=== PATIENT | female | born 2000 | race Hispanic/Latino ===

== ENCOUNTER 2022-03-07 18:00 | Inpatient (IN) | payer OTHER ==
[~2022-03-07 18:00] MED LIST: Acetaminophen 500 MG TAB PO PRN; Butorphanol Tartrate 1 MG/ML VIAL SLOW IVP PRN; Carboprost 250 MCG/ML AMP IM PRN; Diphenoxylate HCl/Atropine Tablet PO PRN; HYDROcodone/Acetaminophen 5/325 mg Tablet PO PRN; Ibuprofen 800 MG TAB PO PRN; Lactated Ringer's 1,000 ML IV SCH; Lidocaine 1% (PF) 30 ML VIAL SC PRN; Methylergonovine 0.2 MG/ML VIAL IM PRN; Misoprostol 100 MCG TAB PO SCH; Misoprostol 200 MCG TAB PR PRN; NS w/ Oxytocin 30 units 500 ML IV SCH; Ondansetron PF 4 MG/2 ML Vial IVP PRN; Penicillin G 2.5 MILL.units 2.5 MILL.UNITS in Premix Bag 1 BAG IVPB SCH; Penicillin G Potassium 5 MILL.UNITS in Sodium Chloride 0.9% 100 ML IVPB SCH; Promethazine HCl 25 MG/ML VIAL IM PRN; hydrALAZINE 20 MG/ML VIAL SLOW IVP PRN
[2022-03-07 19:45] VITALS: BMI 20.7
[2022-03-07] MEDS ORDERED: Penicillin G Potassium 5 MILL.UNITS VIAL ONE (20:34)
[2022-03-07 20:43] LABS: Hemoglobin 12.9 g/dL (12.0-15.5); Mean Corpuscular HGB CONC 34.4 g/dL (32.0-36.0); Mean Corpuscular Hemoglobin 30.8 pg (27.0-33.0); Mean Corpuscular Volume 89.5 fl (81.6-98.3); Mean Platelet Volume 11.2 fl (7.4-10.4); Platelet Count 176 10x3/uL (150-450); RBC Distribution Width 13.2 % (11.5-14.5); Red Blood Cell (RBC) Count 4.19 10x6/uL (3.90-5.03); White Blood Cell (WBC) Count 9.1 10x3/uL (3.5-10.5)
[2022-03-07 21:17] LABS: Syphilis Antibody Nonreactive (Nonreactive); Syphilis Antibody Index 0.03 S/CO (<1.00 Non-Reactive)
[2022-03-07 21:18] LABS: Hep B Surf Ag Non-Reactive S/CO (NonReactive)
[2022-03-07 21:22] LABS: HBSAg Index 0.23 S/CO (0-0.99)
[2022-03-08] MEDS ORDERED: Fentanyl 2 mcg/Bup 0.1% Cadd 100 ML ONE (02:43)
[2022-03-08] MEDS ORDERED: HYDROcodone/Acetaminophen 5/325 mg Tablet PO PRN ×2 (05:54)
[2022-03-08] MEDS ORDERED: Lanolin Ointment 7 GM TUBE TOP PRN (05:54)
[2022-03-08] MEDS ORDERED: Preparation H Ointment 28 GM TUBE PR PRN (05:54)
[2022-03-08] MEDS ORDERED: Misoprostol 200 MCG TAB VAG PRN (05:54)
[2022-03-08] MEDS ORDERED: hydrALAZINE 20 MG/ML VIAL SLOW IVP PRN (05:54)
[2022-03-08] MEDS ORDERED: Bisacodyl 10 MG SUPP PR PRN (05:54)
[2022-03-08] MEDS ORDERED: Ondansetron PF 4 MG/2 ML Vial IVP PRN (05:54)
[2022-03-08] MEDS ORDERED: NS w/ Oxytocin 30 units 500 ML IV SCH (05:54)
[2022-03-08] MEDS ORDERED: Promethazine HCl 25 MG/ML VIAL IM PRN (05:54)
[2022-03-08] MEDS ORDERED: Methylergonovine 0.2 MG/ML VIAL IM PRN (05:54)
[2022-03-08] MEDS ORDERED: Ketorolac Tromethamine 30 MG/ML VIAL IVP SCH (05:54)
[2022-03-08] MEDS ORDERED: Milk Of Magnesia 30 ML UDCUP PO PRN (05:54)
[2022-03-08] MEDS: Ibuprofen 800 MG TAB PO SCH ×3 (06:50→21:34)
[2022-03-08 07:19] LABS: SARS-CoV-2 NAA Rapid Test Not Detected (NotDetected)
[2022-03-08] MEDS: Prenatal Vitamin 1 TAB PO SCH (08:31)
[2022-03-08] MEDS: Ferrous Sulfate 325 MG TAB PO SCH ×2 (08:31→16:35)
[2022-03-08] MEDS: Docusate 100 MG CAP PO SCH ×2 (08:31→21:34)
[2022-03-09] MEDS: Ibuprofen 800 MG TAB PO SCH ×3 (05:24→21:12)
[2022-03-09] MEDS: Docusate 100 MG CAP PO SCH ×2 (08:21→21:12)
[2022-03-09] MEDS: Prenatal Vitamin 1 TAB PO SCH ×2 (08:21→08:23)
[2022-03-09] MEDS: Ferrous Sulfate 325 MG TAB PO SCH ×2 (08:22→15:56)
[2022-03-10 07:54] VITALS: BP 103/64; TEMP 97.5
[2022-03-10] MEDS: Docusate 100 MG CAP PO SCH (08:21)
[2022-03-10] MEDS: Ferrous Sulfate 325 MG TAB PO SCH ×2 (08:29→15:38)
[2022-03-10] MEDS: Prenatal Vitamin 1 TAB PO SCH (08:29)
[2022-03-10] MEDS: Ibuprofen 800 MG TAB PO SCH (13:33)
== END 2022-03-10 16:55 | disposition home or self-care (01) | DRG 807 ==
LOC: CSHLD 18:23 → CSHPP 03-08 06:15
PROVIDERS: ADMIT Student in an Organized Health Care Education/Training Program; ATTEND Student in an Organized Health Care Education/Training Program
PROC: 10E0XZZ Delivery of Products of Conception, External Approach (ICD-10-PCS; principal; 2022-03-08)
PROC: 0UQMXZZ Repair Vulva, External Approach (ICD-10-PCS; 2022-03-08)
DX: O36.5930 Maternal care for other known or suspected poor fetal growth, third trimester, not applicable or unspecified (principal); Z37.0 Single live birth; Z3A.36 36 weeks gestation of pregnancy; O99.824 Streptococcus B carrier state complicating childbirth; Z20.822 Contact with and (suspected) exposure to COVID-19; O70.0 First degree perineal laceration during delivery
CPT/HCPCS: 36415; 36416; 85027; 86780; 86850; 86900; 86901; 87340; J2540; J3490; U0002